=== PATIENT | female | born 1990 | race Caucasian/White ===

== ENCOUNTER 2018-12-21 19:30 | Emergency (ER) | payer OTHER ==
[~2018-12-21] VITALS: Ht 160 cm; Wt 96.4 kg
[~2018-12-21 19:30] MED LIST: ACET325T33 PO
[2018-12-21 19:34] VITALS: Ht 160 cm; Wt 96.4 kg
[2018-12-21 21:31] VITALS: BP 136/87; PULSE 67; RESP 20
== END 2018-12-21 21:32 | disposition home or self-care (01) ==
LOC: FTE 19:30
DX: S09.90XA Unspecified injury of head, initial encounter (principal); Y08.89XA Assault by other specified means, initial encounter
CPT/HCPCS: 99283